=== PATIENT | female | born 1950 | race Hispanic/Latino ===

== ENCOUNTER → 2024-10-21 | Outpatient (REF) | payer MEDICARE | LOC: RAD 10:25 | PROVIDERS: ATTEND Internal Medicine | DX: R05.9 Cough, unspecified (principal) | CPT/HCPCS: 71046 ==

== ENCOUNTER → 2025-02-17 | Outpatient (REF) | payer MEDICARE | LOC: RAD 09:07 | PROVIDERS: ATTEND Internal Medicine | DX: M79.605 Pain in left leg (principal); M79.604 Pain in right leg; M79.89 Other specified soft tissue disorders | CPT/HCPCS: 93970 ==

== ENCOUNTER 2025-03-05 09:10 | Emergency (ER) | payer MEDICARE ==
[~2025-03-05] VITALS: Ht 165.1 cm; Wt 70.8 kg
[2025-03-05 10:29] LABS: LEUKOCYTE ESTERASE ,URINE LARGE (NEGATIVE); PROTEIN,URINE DIPSTICK NEGATIVE (NEGATIVE); URINE UROBILINOGEN 1 mg/dL (0.2 - 1)
[2025-03-05 10:36] LABS: EPITHELIAL CELLS,URINE FEW /LPF; WBC,URINE (MAN) >50 /HPF (0-5)
[2025-03-05] MEDS ORDERED: CEFDINIR300 MG PO (11:01)
[2025-03-05 11:07] VITALS: PULSE 60; RESP 16; TEMP 98.3
[2025-03-05 11:24] VITALS: BP 130/62; PULSE 60; RESP 16; TEMP 98.3; O2SAT 99
== END 2025-03-05 11:12 | disposition home or self-care (01) ==
LOC: ER 09:32
DX: R30.0 Dysuria (principal); N39.0 Urinary tract infection, site not specified; I10 Essential (primary) hypertension; E78.5 Hyperlipidemia, unspecified; Z85.818 Personal history of malignant neoplasm of other sites of lip, oral cavity, and pharynx; Z85.028 Personal history of other malignant neoplasm of stomach
CPT/HCPCS: 81001; 81003; 87086; 99283